=== PATIENT | female | born 1965 | race Caucasian/White ===

== ENCOUNTER 2017-01-28 17:22 | Emergency (ER) | payer SELFPAY ==
--- NOTE | ~2017-01-28 | ER ---
[facility] AGE: 51 Y [address] ROOM: [place] [address] LOCATION: ED ADMIT DATE: 01/28/2017 ER/Outpatient Report DISCHARGE DATE: 01/28/2017 FAMILY PHYSICIAN: Genna Truong MD ATTENDING PHYSICIAN: Steve Cohen CHIEF COMPLAINT: Abdominal pain. HISTORY OF PRESENT ILLNESS: Ms. Hadley presents for evaluation of abdominal and back pain. The pain is chronic. It has been present for weeks to months, but has been worse over the last 4 days. She feels she is not getting appropriate evaluation in [place] with her primary care physician, and thus came here for re-evaluation. She states she does see a pain physician here in [place], but does not know who it is. She does state she is on a pain contract. She has a history of multiple C- sections, hysterectomy, appendectomy, and cholecystectomy. She has no change in bowel or bladder habits, but does state that she has been vomiting continuously for the last 4 days. No other acute issues at this time. Denies any chest pain or shortness of breath. PAST MEDICAL HISTORY: Documented on the record and reviewed by me. SOCIAL HISTORY: Documented on the record and reviewed by me. MEDICATIONS: Documented on the record and reviewed by me. ALLERGIES: DOCUMENTED ON THE RECORD AND REVIEWED BY ME. REVIEW OF SYSTEMS: All systems reviewed and negative except as noted in the HPI. PHYSICAL EXAMINATION: VITAL SIGNS: Blood pressure 160/97, pulse 102, respiratory rate is 18, temperature 98.7, SpO2 is 97% on room air. Pain is rated 10/10. GENERAL: An age appropriate female, recumbent on exam table. No apparent pain or distress, miserable appearance. NEUROLOGIC: Awake and alert. GCS 15. No gait abnormalities. No asymmetry. No focal deficits appreciated. HEENT: Normocephalic, atraumatic. Eyes are PERRL. Oropharynx is grossly clear. NECK: Supple. Trachea is midline. PATIENT'S NAME: SELENE SEPULVEDA [facility] AGE: 51 Y [address] ROOM: [place] [address] LOCATION: ED ADMIT DATE: 01/28/2017 ER/Outpatient Report DISCHARGE DATE: 01/28/2017 FAMILY PHYSICIAN: Genna Truong MD ATTENDING PHYSICIAN: Steve Cohen HEART: Borderline tachycardic. No murmurs. LUNGS: Clear to auscultation bilateral with no rhonchi, wheezes, or rales. ABDOMEN: Soft with diffuse tenderness, lower. No rebound, guarding, or masses. BACK: Normal to inspection and palpation except for some paraspinal tenderness on the right side. Poorly localized. EXTREMITIES: Warm and well perfused. No deformities other than prior surgical and trauma scars. SKIN: Appears to be clean, dry, and intact. No rashes appreciated. LABORATORY DATA AND X-RAYS: CT of the abdomen with contrast was unremarkable per Radiology for acute pathology. CBC without appreciable abnormalities. INR is less than 1. CMS without appreciable abnormality. Amylase, lipase, CPK, CK-MB, troponin, and CRP are within normal limits. Lactate is 1. Urinalysis not consistent with any acute processes. EKG is a sinus rhythm, rate of 80 with otherwise normal intervals and axis. No comparison available. IMPRESSION: Abdominal pain, nothing otherwise specified. EMERGENCY DEPARTMENT COURSE: The patient was seen and evaluated. Broad differential was entertained including cardiac etiology, hepatobiliary pathology, bowel obstruction, functional abdominal discomfort, and ischemic bowel. Her overall presentation is not consistent with ACS or ischemic bowel. However, CT, EKG, and troponins were obtained. With normal laboratory evaluation in the setting of several days of symptoms with normal vital signs, I do not think the patient has any acute pathology requiring further evaluation in the hospital. Her symptoms were managed today with some morphine, Compazine, and Benadryl. On re- evaluation, the patient was sleeping and was easily arousable. She stated there was no change in her pain, however, clinically she had marked improvement. Heart rate was down to 84. The patient will be discharged home with instructions to use her usual home pain medications. She was given a prescription for Phenergan to help control her nausea over the next few days and she needs to follow up with her doctors for re-evaluation. MD ANA CLANCY/kim /[id number] d: 01/29/17 0226 t: 01/30/17 1253, OUTPATIENT REPORT
[2017-01-28 17:36] LABS: BILIRUBIN URINE NEGATIVE (NEGATIVE); BLOOD URINE NEGATIVE /UL (NEGATIVE); COLOR URINE YELLOW (YELLOW); GLUCOSE URINE NEGATIVE (NEGATIVE); KETONE URINE 50 mg/dL (NEGATIVE); LEUKOCYTES URINE 25 /UL (NEGATIVE); NITRITE URINE NEGATIVE (NEGATIVE); PROTEIN URINE NEGATIVE (NEGATIVE); SPEC GRAVITY URINE 1.015 (1.003-1.035); TURBIDITY URINE CLEAR (CLEAR); UROBILINOGEN URINE 1 mg/dL (NORMAL)
[2017-01-28 17:43] LABS: RBC URINE NEGATIVE #/HPF (NEGATIVE); WBC URINE 0-2 #/HPF (NEGATIVE)
[2017-01-28 17:44] LABS: BACTERIA URINE NEGATIVE (NEGATIVE)
[2017-01-28 18:43] LABS: BASOPHIL % 0.2 %; EOSINOPHIL % 0.1 %; HEMATOCRIT 40.4 % (33.0-46.0); HEMOGLOBIN 13.8 g/dL (10.0-15.0); IMMATURE GRANULOCYTE % 0.4 %; LYMPHOCYTE # 0.8 K/uL (0.8-4.0); LYMPHOCYTE % 9.1 %; MCH 31.5 pg (27.0-34.0); MCHC 34.2 gm/dL (32.0-36.5); MCV 92.2 fl (83.0-98.0); MONOCYTE # 0.1 K/uL (0.0-1.0); MONOCYTE % 1.7 %; MPV 8.7 fl (9.4-12.4); NEUTROPHIL # (ANC) 7.5 K/uL (1.8-7.8); NEUTROPHIL % 88.5 %; NRBC % 0 /100WBC (0-0.00); PLATELET COUNT 365 K/uL (150-450); RBC 4.38 M/uL (3.50-5.50); RDW-CV 14.1 % (11.9-14.6); WBC 8.5 K/uL (4.0-11.0)
[2017-01-28 18:51] LABS: INR - (THERAPEUTIC) 0.95 (0.92-1.07); PTT 28 SECONDS (25-32)
[2017-01-28 19:00] LABS: ALBUMIN 3.9 gm/dL (3.5-5.0); ALK PHOS 72 IU/L (33-138); ALT 22 IU/L (12-78); ANION GAP 12.8 (10.0-19.0); AST 14 IU/L (10-40); BLOOD UREA NITROGEN 8 mg/dL (6-24); CALCIUM 8.8 mg/dL (8.5-10.5); CHLORIDE 108 mMol/L (96-110); CO2 25 mMol/L (22-32); CPK 75 IU/L (21-215); CREATININE 0.6 mg/dL (0.5-1.1); POTASSIUM 3.8 mMol/L (3.7-5.1); SODIUM 142 mMol/L (135-145); TOTAL BILIRUBIN 0.4 mg/dL (0.0-1.5); TOTAL PROTEIN 7.1 g/dL (6.0-8.4)
== END 2017-01-28 20:09 | disposition disaster alternative care site (69) ==
LOC: GMED 17:22
PROVIDERS: Emergency Medicine
DX: R10.9 Unspecified abdominal pain (principal); F17.210 Nicotine dependence, cigarettes, uncomplicated; Z88.1 Allergy status to other antibiotic agents; Z79.899 Other long term (current) drug therapy; Z79.891 Long term (current) use of opiate analgesic; Z87.448 Personal history of other diseases of urinary system; Z85.830 Personal history of malignant neoplasm of bone; Z98.890 Other specified postprocedural states; Z96.651 Presence of right artificial knee joint
CPT/HCPCS: J0780; J1200; J2270; Q9967